=== PATIENT | male | born 1955 | race Caucasian/White ===

== ENCOUNTER 2022-08-14 04:05 | Day surgery (SDC) | payer BC ==
[2022-08-10 15:28] VITALS: BMI 36.6
[2022-08-14] MEDS ORDERED: BUPIVACAINE HCL/PF 0.25% (2.5MG/ML) 10 ML VIAL ONE (08:17)
[2022-08-14] MEDS ORDERED: PROPOFOL 20 ML ONE (10:06)
[2022-08-14] MEDS ORDERED: MIDAZOLAM HCL 2 MG/2 ML SINGLE DOSE VIAL ONE (10:07)
[2022-08-14] MEDS ORDERED: SUCCINYLCHOLINE CHLORIDE 200 MG/10 ML SYRINGE ONE (10:07)
[2022-08-14] MEDS ORDERED: ROCURONIUM BROMIDE 50 MG/5 ML SYRINGE ONE (10:24)
[2022-08-14] MEDS ORDERED: DEXAMETHASONE SOD PHOSPHATE 4 MG/1 ML VIAL ONE (10:25)
[2022-08-14] MEDS ORDERED: ONDANSETRON 4 MG/2 ML VIAL ONE ×2 (10:25→12:27)
[2022-08-14] MEDS ORDERED: ePHEDrine SULFATE 50 MG/1 ML AMPULE ONE (10:28)
[2022-08-14] MEDS ORDERED: ceFAZolin SODIUM 1 GM VIAL IVPB ONE (10:40)
[2022-08-14] MEDS ORDERED: ceFAZolin SODIUM 1 GM VIAL ONE (10:41)
[2022-08-14] MEDS ORDERED: HEPARIN NA (PORCINE) 5,000 UNITS/ML 1ML VIAL ONE (10:42)
[2022-08-14] MEDS ORDERED: HEPARIN NA (PORCINE) 5,000 UNITS/ML 1ML VIAL SQ ONE (10:55)
[2022-08-14] MEDS ORDERED: BUPIVACAINE HCL/PF 0.5% (5MG/ML) 10 ML VIAL IJ ONE (11:07)
[2022-08-14] MEDS ORDERED: GLYCOPYRROLATE 0.2 MG/1 ML VIAL ONE (12:38)
[2022-08-14] MEDS ORDERED: NEOSTIGMINE METHYLSULFATE 0.5 MG/ML - 10 ML MDV ONE (12:38)
[2022-08-14] MEDS ORDERED: ONDANSETRON 4 MG/2 ML VIAL IVPUSH PRN (13:06)
[2022-08-14] MEDS ORDERED: oxyCODONE HCL 5 MG TABLET PO PRN (13:06)
[2022-08-14] MEDS ORDERED: LACTATED RINGERS SOLUTION 1,000 ML IV SCH (13:15)
[2022-08-14 15:19] VITALS: RESP 16
[2022-08-14 15:21] VITALS: BP 135/102; PULSE 96; TEMP 96.6
[2022-08-14] MEDS ORDERED: ACETAMINOPHEN 325 MG TABLET (FP) ONE (15:24)
[2022-08-14] MEDS ORDERED: ACETAMINOPHEN 500 MG TABLET (FP) PO ONE (15:26)
[2022-08-14] MEDS ORDERED: ACETAMINOPHEN 325 MG TABLET (FP) PO ONE (15:30)
== END 2022-08-14 18:15 | disposition home or self-care (01) ==
LOC: JASU-SURG 04:05
PROVIDERS: ATTEND Surgery
PROC: 0WQF4ZZ Repair Abdominal Wall, Percutaneous Endoscopic Approach (ICD-10-PCS; principal; 2022-08-14 10:30)
DX: K42.9 Umbilical hernia without obstruction or gangrene (principal)
CPT/HCPCS: 86850; 86900; 86901; 94760; J1644